=== PATIENT | female | born 1950 | race Caucasian/White ===

== ENCOUNTER 2020-04-23 07:30 | Outpatient (CLI) | payer MEDICARE, SELFPAY ==
--- NOTE | ~2020-04-23 | MM_ITS ---
EXAMINATION: MM screening [facility] BI w trista HISTORY: Screening mammogram TECHNIQUE: Craniocaudal and mediolateral oblique 3-D tomosynthesis images were obtained and synthetic 2-D images were generated. Right rotated lateral cc view. CAD analysis was submitted and interpreted . COMPARISON: 03/20/2019, 12/07/2016, 10/15/2015 bilateral digital screening mammogram examinations BREAST PARENCHYMAL COMPOSITION: There are scattered areas of fibroglandular density. FINDINGS: Stable mild fibroglandular asymmetry. There is no evidence of suspicious mass, calcificatio n, or architectural distortion to suggest malignancy in either breast. There has been no suspicious i nterval change. IMPRESSION: 1. No mammographic evidence of malignancy. 2. Recommend routine screening mammography in one year. BI-RADS Category 2: Benign finding(s). Reviewed, dictated and finalized at location B.
== END 2020-04-23 07:31 | disposition home or self-care (01) ==
LOC: ANHIMG 07:36
PROVIDERS: PCP Family Medicine; Visit Provider Family Medicine
DX: Z12.31 Encounter for screening mammogram for malignant neoplasm of breast (principal)
CPT/HCPCS: 77063; 77067

== ENCOUNTER 2021-06-09 16:36 | Outpatient (CLI) | payer MEDICARE, SELFPAY ==
--- NOTE | ~2021-06-09 | XR_ITS ---
EXAMINATION: XR knee RT min 4V DATE: 06/09/2021 17:07 INDICATION: Posterior right knee pain TECHNIQUE: Anteroposterior, oblique, sunrise and crosstable lateral views of the right knee were obta ined COMPARISON: None. FINDINGS: No fracture. Advanced patellofemoral osteoarthritis with remodeling of the trochlea and more prominen tly at the patella with prominent bone loss at the lateral facet. Lateral patellar tilt and subluxati on, unclear whether primary or secondary to the bone loss. Small marginal osteophytes along the later al tibial plateau and intercondylar eminence with relatively preserved joint space on nonweightbearin g imaging at the medial and lateral compartments. 4.5 x 2.5 x 3 cm osteochondral body and approximate ly 1 cm more caudal loose osteochondral body, both at the lateral gutter of the suprapatellar pouch. Suggestion of small right knee joint effusion. IMPRESSION: 1. Advanced patellofemoral osteoarthritis. Reviewed, dictated and finalized at location A. 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
== END 2021-06-09 16:37 | disposition home or self-care (01) ==
PROVIDERS: PCP Family Medicine; Visit Provider Physician Assistant
DX: M25.561 Pain in right knee (principal); M17.11 Unilateral primary osteoarthritis, right knee
CPT/HCPCS: 73564

== ENCOUNTER 2021-07-29 14:02 | Outpatient (CLI) | payer MEDICARE, SELFPAY ==
--- NOTE | ~2021-07-29 | DEXA_ITS ---
Bone Density Report Name: GRANT BALLARD Age: 70 Sex: Female Ethnicity: White Date of : 1950 Indication: osteopenia; height loss; prior fracture; postmenopausal Referring Provider: Kaye Rogers Study: Bone densitometry was performed. Exam Date: July 29, 2021 Accession number: [id number] Bone Density: Region BMD T-score Z-score Classification AP Spine (L1, L2, L3) 0.954 -0.6 1.6 Normal Femoral Neck (Left) 0.764 -0.8 1.2 Normal Total Hip (Left) 0.888 -0.4 1.2 Normal Total Hip Bilateral Avg 0.917 -0.2 1.5 Normal Femoral Neck (Right) 0.892 0.4 2.3 Normal Total Hip (Right) 0.946 0.0 1.7 Normal World Health Organization criteria for BMD impression classify patients as: Normal (T-score at or above -1.0), Osteopenia (T-score between -1.0 and -2.5), or Osteoporosis (T-score at or below -2.5). 10-year Fracture Risk: FRAX not reported because: All T-scores for Spine Total, Hip Total, Femoral Neck at or above -1.0 Previous Exams: Region Exam Age BMD T-score BMD Change BMD Change Date g/cm2 vs Baseline vs Previous AP Spine(L1, L2, L3) 07/29/2021 70 0.954 -0.6 -0.202(-17.5%) 0.053(5.9%)* 10/15/2015 65 0.901 -1.1 -0.255(-22.1%) -0.255(-22.1%) 12/18/2001 51 1.155 1.2 Total Hip(Left) 07/29/2021 70 0.888 -0.4 -0.157(-15.0%) -0.008(-0.9%) 10/15/2015 65 0.896 -0.4 -0.149(-14.3%) -0.149(-14.3%) 12/18/2001 51 1.045 0.8 Total Hip(Right) 07/29/2021 70 0.946 0.0 -0.158(-14.3%) -0.058(-5.8%)* 10/15/2015 65 1.004 0.5 -0.100(-9.1%)# -0.100(-9.1%)# 12/18/2001 51 1.105 1.3 *Denotes significance at 95% confidence level, LSC for AP Spine = 0.022 g/cm2, LSC for Total Hip = 0.027 g/cm2 Clinical Information Provided by Patient: Has had a low trauma fracture Has used the following medications: Vitamin D, Calcium Patient maximum height was 67 Menopause Age: 48 Drinks caffeinated beverages Onset of menses at age 15 Number of children 2 Impression: The patient has normal bone mass. The patient has risk factors, including: previous fracture. The BMD for the Total Hip(Right) decreased, changing by -5.8% since the last DXA exam. Discussion: BONE DENSITY IS ABOVE THE MINIMUM DESIRABLE LEVEL AT ALL SKELETAL SITES TESTED. This patient?s bone mineral density is above the minimum desirable level (T-score -1.0 or better) at all sites measured. The patient should follow a healthful lifestyle (good nutrition with adequat
--- NOTE | ~2021-07-29 | MM_ITS ---
EXAMINATION: MM screening [facility] BI w trista HISTORY: Screening mammogram TECHNIQUE: Craniocaudal and mediolateral oblique 3-D tomosynthesis images were obtained and synthetic 2-D images were generated. CAD analysis was submitted and interpreted. COMPARISON: 04/23/2020, 03/20/2019, 12/07/2016 BREAST PARENCHYMAL COMPOSITION: There are scattered areas of fibroglandular density. FINDINGS: There is no evidence of suspicious mass, calcification, or architectural distortion to sugg est malignancy in either breast. There has been no suspicious interval change. IMPRESSION: 1. No mammographic evidence of malignancy. 2. Recommend routine screening mammography in one year. BI-RADS Category 1: Negative Reviewed, dictated and finalized at location A. E EXTRA
== END 2021-07-29 14:03 | disposition home or self-care (01) ==
LOC: ANHIMG 14:04
PROVIDERS: PCP Family Medicine; Visit Provider Physician Assistant
DX: Z12.31 Encounter for screening mammogram for malignant neoplasm of breast (principal); Z78.0 Asymptomatic menopausal state
CPT/HCPCS: 77063; 77067; 77080

== ENCOUNTER 2021-09-06 08:05 | Outpatient (CLI) | payer MEDICARE, SELFPAY ==
--- NOTE | 2021-09-06 08:39 | ECG_ITS ---
Measurements Intervals [place] Rate: 65 P: 58 ME: 177 QRS: 23 QRSD: 87 T: 3 QT: 398 QTc: 415 Interpretive Statements SINUS RHYTHM INCOMPLETE RIGHT BUNDLE BRANCH BLOCK BORDERLINE ST-T WAVE ABNORMALITY- ANTEROLAT/INF LEADS BASELINE WANDER- V3 BORDERLINE ECG Electronically Signed On 09-06-2021 9:41:22 INDUSTRIAL CLEANER by Andrew Morocho D.O.
[2021-09-06 08:44] LABS: Hemoglobin 13.3 g/dL (12.0-15.0)
[2021-09-06 08:55] LABS: Albumin Level 4.4 g/dL (3.5-5.1); Estimated Glomerular Filt Rate > 60; Glucose 168 mg/dL (65-110)
[2021-09-06 09:10] LABS: Hemoglobin A1C 5.9 % (<5.7)
== END 2021-09-06 08:06 | disposition home or self-care (01) ==
PROVIDERS: PCP Family Medicine; Visit Provider Orthopaedic Surgery
DX: M17.11 Unilateral primary osteoarthritis, right knee (principal); Z01.818 Encounter for other preprocedural examination; E78.2 Mixed hyperlipidemia; R73.03 Prediabetes; I45.10 Unspecified right bundle-branch block; R94.31 Abnormal electrocardiogram [ECG] [EKG]
CPT/HCPCS: 36415; 82040; 82565; 82947; 83036; 85014; 85018; 93005

== ENCOUNTER 2021-10-17 09:57 | Outpatient (CLI) | payer MEDICARE, SELFPAY ==
[2021-10-17 11:09] LABS: Basophils Percent Auto 0.5 % (0.2-1.2); Eosinophils Absolute Auto 0.1 K/mm3 (0-0.3); Eosinophils Percent Auto 1.4 % (0-4.4); Hematocrit 42.1 % (37.0-47.0); Hemoglobin 13.6 g/dL (12.0-15.0); Immature Granulocyte Absolute 0.01 K/mm3 (0.00-0.031); Immature Granulocyte Percent A 0.2 % (0-0.5); Lymphocytes Percent Auto 28.5 % (18.3-44.2); Mean Corpuscular HGB Conc 32.3 g/dl (32-36); Mean Corpuscular Hemoglobin 31.1 pg (26-34); Mean Corpuscular Volume 96.3 fl (80-100); Mean Platelet Volume 9.5 fl (7.4-10.4); Monocytes Absolute Auto 0.4 K/mm3 (0.1-0.6); Neutrophils Absolute Auto 2.5 K/mm3 (1.3-6.7); Neutrophils Percent Auto 60.4 % (45.5-73.1); Platelet Count Result 235 k/mm3 (150-375); Red Blood Count 4.37 M/mm3 (4.2-5.4); Red Cell Distribution Width 13.2 % (11.5-14.5); White Blood Count 4.2 K/mm3 (4.5-10.0)
[2021-10-17 11:19] LABS: Urine Cotinine NEGATIVE
[2021-10-17 11:21] LABS: Albumin Level 4.5 g/dL (3.5-5.1); Estimated Glomerular Filt Rate > 60; Glucose 135 mg/dL (65-110)
== END 2021-10-17 09:58 | disposition home or self-care (01) ==
LOC: ANHSURGERY 10:01
PROVIDERS: PCP Family Medicine; Visit Provider Orthopaedic Surgery
DX: M17.11 Unilateral primary osteoarthritis, right knee (principal); Z01.818 Encounter for other preprocedural examination
CPT/HCPCS: 80307; 82040; 82565; 82947; 85025; 87081

== ENCOUNTER 2021-11-15 01:04 | Day surgery (SDC) | payer MEDICARE, SELFPAY ==
[2021-10-17 10:06] VITALS: BMI 27.3
--- NOTE | 2021-10-17 10:20 | PC.NURSE ---
Report to the Outpatient Waiting Room, entrance under the green pavilion located off [facility], at time ___30____ on date _11/15/21 . OR Time: ___1029____. - You and your visitor will be asked a series of questions to screen for COVID 19 for your protection. - A mask is required within the hospital. Preoperative COVID Testing Requirements: No COVID Test needed if: (proof is required; if not received patient will have Rapid Test prior to entry) - Patient has received COVID Vaccine at least 14 days prior to procedure date or - Patient has positive COVID test result within last 90 days of surgery date. COVID Test needed if above criteria is not met If not COVID vaccinated a COVID test must be conducted within 72 hours of surgery and patient is asked to isolate self from time of testing until procedure. You will go to the [facility] for your COVID testing. The [facility] is located at the corner of [address] from [facility]. You will only be called if COVID results are positive and your surgeon may reschedule your elective surgery date. Patients may have clear liquids (water, carbonated beverages, clear teas, apple juice) until 3 hours prior to surgery with a maximum of 20 ounces. - No food from midnight until time of surgery - Infants may have breast milk until 4 hours before surgery, infant formula 6 hours prior to surgery. - Children will be allowed to drink immediately following surgery. If applicable, please bring a bottle or sippy cup to assist with drinking. Juice, water, soda, and popsicles are readily available. For infants on formula, please bring formula the day of surgery. Pacifiers are allowed. Take the following medications with a SIP of water the morning of surgery: ___NONE Medications to discontinue per physician ALL VITAMINS AND SUPPLEMENTS 3 DAYS PRE OP Date to take last dose____11/11/21 Please no make-up, nail pakistani, hairspray, perfume, deodorant, or body powder the day of surgery. No jewelry (including any body piercings) or valuables the day of surgery, leave them at home. Please take a shower or bath the night before, or the morning of, surgery with an antibacterial soap. Wear comfortable, loose fitting clothing. Children are encouraged to wear pajamas. - Jewelry must be removed prior to entering the operating room. Rings and piercings that are not removed may be cut off. - The hospital will not accept responsibility for valuables. - Please leave all valuables, including medications, at home the day of surgery. If you are going home after surgery, a licensed fence post driver must drive you home. TOTAL JOINT CLASS 10/26/21 @ 10 AM - NO public transportation without another adult. - We recommend that an adult stay with you for 24 hours following discharge. - We also recommend that you do not drive, make important decision, drink alcoholic beverages, or take any drugs that were not prescribed by your health care provider for at least 24 hours after your discharge time. For Pediatric surgeries, we recommend two adults accompany the child home (only one inside the building at this time). One visitor will be allowed to accompany the patient into the hospital. Patients visitor will be instructed to remain with patient at all times or leave the building. We will allow the visitor to come back to the postoperative area when patient is ready. Follow any additional instructions given to you from your surgeon. VERBAL AND WRITTEN instructions given to _PATIENT and asked if any additional questions and then verbalized understanding. Patient advised to call surgeon office or pre surgery nurse liaison [phone] if any additional questions.
[2021-10-17 10:39] VITALS: BP 138/77; PULSE 80; RESP 18; TEMP 36.7; O2SAT 99
[2021-11-15] VITALS (15 sets, daily range): BP systolic 105–174; BP diastolic 53–107; PULSE 62–85; RESP 12–20; TEMP 35.9–36.6; O2SAT 96–100
--- NOTE | ~2021-11-15 | XR_ITS ---
EXAMINATION: XR knee RT 2V DATE: 11/15/2021 12:05 INDICATION: Total right knee arthroplasty. Postop. TECHNIQUE: 2 views of right knee were obtained. COMPARISON: Right knee radiographs 10/17/2021 FINDINGS: There is a total right knee arthroplasty without patellar resurfacing in near-anatomic alig nment. No fracture. There are osteophytes of the patella. No significant knee joint effusion. IMPRESSION: 1. Total right knee arthroplasty in near-anatomic alignment. Reviewed, dictated and finalized at location A.
--- NOTE | 2021-11-15 07:16 | WPDHPUPDATE1 ---
History and Physical Update Update Date/Time: 11/15/21 07:16 History and Physical has been reviewed, including an updated exam of the patient. There are NO changes in the patient's condition. Risks, benefits, and alternatives have been discussed and questions answered. Patient agrees to proceed with procedure.
--- NOTE | 2021-11-15 07:59 | WPDANESEPPF ---
Anes - Initial Pre Proc Eval Procedure: Operation Date: 11/15/21 10:30 Proposed Procedures p Right Total Knee Arthroplasty - Jose Amos MD Date/Time: 11/15/21 07:59 Surgeon: Jose Amos MD Pre Op Diagnosis: primary oa right knee Patient Data Age: 71 Gender: F Height: 1.7 m Weight: 79.3 kg Last Vital Signs Temp 36.7 C 10/17/21 10:39 Pulse 80 10/17/21 10:39 Resp 18 10/17/21 10:39 BP 138/77 10/17/21 10:39 Pulse Ox 99 10/17/21 10:39 Allergies Allergy/AdvReac Type Severity Reaction Status Date / Time No Known Allergies Allergy Verified 11/15/21 08:37 Home Medications Medication Instructions Recorded Confirmed Type calcium carbonate 600 mg-vitamin 1 tablet PO DAILY 03/24/20 11/15/21 History D3 20 mcg (800 unit) chewable tablet cetirizine 10 mg tablet 10 mg PO DAILY PRN tablet 03/24/20 11/15/21 History nwuiyesb-ryj-zsxij acid 0.4 1 tablet PO DAILY 03/24/20 11/15/21 History mg-lycopene 300 mcg-lutein 250 mcg tablet glucosamine sulfate 1,000 mg 1,000 mg PO DAILY 06/28/21 11/15/21 History capsule acetaminophen [Tylenol Arthritis] 650 mg PO Q8H PRN 10/17/21 11/15/21 History rosuvastatin 10 mg PO HS 10/17/21 11/15/21 History ECG: Date of Service: 09/06/21 Procedure(s): CA 12 lead EKG Accession Number(s): [id number] cc: ~ Measurements Intervals [place] Rate: 65 P: 58 GA: 177 QRS: 23 QRSD: 87 T: 3 QT: 398 QTc: 415 Interpretive Statements SINUS RHYTHM INCOMPLETE RIGHT BUNDLE BRANCH BLOCK BORDERLINE ST-T WAVE ABNORMALITY- ANTEROLAT/INF LEADS BASELINE WANDER- V3 BORDERLINE ECG Electronically Signed On 09-06-2021 9:41:22 BURNER MACHINE OPERATOR by Andrew Morocho D.O. Patient hx anesthesia problems: none Family hx anesthesia problems: none Results Review: All pre-operative results and documents have been reviewed as part of the pre-operative evaluation. [facility] Past Medical History Medical History (Updated 11/16/21 @ 08:25 by VIC Capps) History of broken collarbone (~1974) History of measles History of mumps Mixed hyperlipidemia Osteoarthritis Overweight (BMI 25.0-29.9) Surgical History Surgical History (Updated 11/16/21 @ 08:25 by VIC Capps) History of hysterectomy History of tubal ligation Family History Family History Father Alzheimer disease Coronary artery disease Other Carcinoma of colon Diabetes mellitus Social History Social History Smoking status: Never smoker Additional smoking assessment comments: DENIES ANY FORM OF TOBACCO USE Alcohol intake: never Substance use: never Living arrangements: with family Spiritual care concerns: No Anes - Eval Final PreProcedure Day of Procedure 11/15/21 07:59 Patient weight: obese Heart: regular rate and rhythm Lungs: clear to auscultation and normal air movement Airway: Mallampati scale class II Neurological: alert and oriented Last oral intake: >/= 8 hours ASA classification: II Emergent: no Anesthetic plan: proceed Anesthesia type and monitoring: general LMA Results Review: All pre-operative results and documents have been reviewed as part of the pre-operative evaluation. Informed Consent: The patient's anesthetic plan and its attendant risks and benefits were discussed with the patient/family/POA. Questions were solicited and answers provided to the satisfaction of the patient/family/POA.
--- NOTE | 2021-11-15 08:03 | WPDANESPNB ---
Anes - Peripheral Nerve Block Date/Time: 11/15/21 08:03 I have discussed with the patient/family/POA the placement of a peripheral nerve block for post-operative pain management, including associated risks, benefits, complications, and side effects. Alternative methods of post-operative analgesia were detailed. Questions were solicited and answers provided to the satisfaction of the patient/family/POA. Time-Out: A pre-procedural Time-Out was completed immediately before starting the procedure and confirmed: Patient Identification, Site, Procedure, Patient Position and the Availability of Requisite Equipment. Clinical Indications: Acute post-operative pain management requested by the operative surgeon. Nerve Block Insertion Note Anes-nerve block: adductor canal right Patient position: supine Skin prep: chlorhexidine Needle: 22 gauge, stimulating, insulated echogenic needle. Needle length: 80 mm Technique: ultrasound Technique comment: in plane Injectate: bupivacaine 0.5% with epi 5 mcg/ml (30cc) Observations: tolerated well Complications: none Procedure start time:: 955 Procedure end time:: 1000
[2021-11-15] MEDS: LACTATED RINGERS 1,000 ML 30 ML IV CONT ×2 (08:45→11:49)
[2021-11-15] MEDS: ACETAMINOPHEN 500 MG TABLET 1000 MG PO (08:45)
[2021-11-15] MEDS: TRANEXAMIC ACID 1,000MG/ISO100 1,000 MG/100 ML BAG 200 MG IVPB (09:33)
[2021-11-15] MEDS: ceFAZolin 2 GM/D5W 50 ML 2 GM/50 ML BAG IVPB ×2 (09:58→17:10)
[2021-11-15] MEDS: fentaNYL CITRATE INJ (*CRX) 100 MCG/2 ML VIAL 25 MCG IV PUSH ×4 (12:52→13:32)
--- NOTE | 2021-11-15 14:09 | PC.NURSE ---
This patient, Mildred Almaraz, was admitted to 2 Medical Room 241-01. Patient/family oriented to hospital policies and general routines including ID bracelet, bed and alarms, visiting hours, pain management, procedures, bathroom and other care routines, personal items, smoking policy, room service/diet, and visiting hours. Information on how to activate the Rapid Response Team has been discussed. Patient/Family are encouraged to report perceived risks to care and to ask questions if they do not understand what they are told or what they should do.
[2021-11-15] MEDS: SODIUM CHLORIDE 0.9% IV 1,000 ML 125 ML IV CONT (14:45)
--- NOTE | 2021-11-15 15:09 | W.PM.PROC2 ---
Procedure Note - Detailed Date of Procedure 11/15/21 Pre-op Diagnosis Primary patellofemoral osteoarthritis right knee Post-op Diagnosis Same Procedure Performed Total knee arthroplasty, right knee. Surgeon Jose Amos MD Consumer Education Specialist Audrey Lozada PA-C Anesthesia General and Regional (Subsartorial block.) Indications End-stage primary patellofemoral arthritis with extensive erosion and subluxation of the patella. Due to the extreme thinness of the patella, patellar resurfacing was not possible. Findings The lateral aspect of the patella and osteophytes were removed and shaped to improve tracking. It tracked with the medial portion of the patella in the trochlea. This was quite stable. Bone quality was reasonable. No significant releases were required. Standard bony resections. Description of Procedure The patient was brought to the operating room. A general anesthetic was administered. The leg was prepped and draped in the usual sterile fashion. The limb was elevated and the tourniquet inflated to 300 mmHg during initial exposure. A longitudinal incision was created along the medial border of the patella and patellar tendon, and a trivector approach to the knee was performed. A minimal medial release was taken. The knee was then flexed. The osteophytes were carefully removed. The intramedullary guide was placed in the femoral canal. The distal femoral resection was then taken with the oscillating saw. The collateral ligaments were carefully protected. The tibia was carefully exposed. The jig was applied, and the proximal tibia was resected according to preoperative plan. The knee was balanced in extension. Appropriate releases were taken where needed. The anterior cruciate ligament and meniscal remnants were removed. The posterior cruciate ligament was preserved sacrificed. The femur was sized and rotation assessed using a combination of gap balancing, posterior referencing, and the AP axis. The 4 in 1 cutting block and the box cut guide were used to finish the femoral cuts after equal gaps were assured. The osteophytes were carefully removed from the back of the knee. The knee was copiously irrigated with antibiotic solution periodically throughout the procedure. The meniscal remnants were removed. The spacer block was used to confirm equal flexion and extension gaps. Further releases were performed as needed. The tibia was sized and broached. The bony surfaces were prepared for cementing with pulsatile lavage. The real tibial and femoral components were cemented into position. Excess cement was carefully removed. Patellar tracking was carefully assessed. The lateral aspect of the patella and osteophytes were removed and shaped to improve tracking. No additional releases were required. Dilute sterile Betadine soak performed for three minutes. Copious irrigation then performed. The wound was closed with #1 Vycril suture, #2 Quill suture, 0-Quill suture, and 2-0 Quill suture followed by Steri-Strips. A sterile bulky dressing was applied. Meticulous hemostasis was maintained throughout the procedure. The pain relieving mixture was injected into the periarticular tissues during the procedure. There were no complications. The patient was extubated and brought to the recovery room in stable condition after the application of sterile dressing with Collin bandage. Physician laboratory chemical assistant, Audrey Lozada PA-C, required for surgery; including patient positioning, draping, tissue retraction, maintaining instrument position, cement removal, wound closure, and dressing placement. Implants Central Test Triathlon knee system, low profile cemented tibia size 5, cemented posterior stabilized femoral component size 4 ,and a 9 mm posterior stabilized polyethylene insert. Estimated Blood Loss -100.0 Drains No Complications No immediate complications Condition Stable Disposition PACU
[2021-11-15] MEDS: ONDANSETRON INJ 4 MG/2 ML VIAL IV PUSH (15:40)
--- NOTE | 2021-11-15 15:58 | PCPTNOTE ---
Attempted physical therapy evaluation, Patient very nauseous/feeling unwell. RN aware. Will follow.
[2021-11-15] MEDS: SENNA/DOCUSATE SODIUM TABLET 2 TAB PO (16:32)
[2021-11-15] MEDS: ASPIRIN 81 MG ENTERIC TABLET PO (16:33)
[2021-11-15] MEDS: MELOXICAM 7.5 MG TABLET PO (16:33)
[2021-11-15] MEDS: FAMOTIDINE 20 MG TABLET PO (19:54)
[2021-11-15] MEDS: ROSUVASTATIN 10 MG TABLET PO (19:54)
[2021-11-16] MEDS: ceFAZolin 2 GM/D5W 50 ML 2 GM/50 ML BAG IVPB ×2 (01:48→09:43)
[2021-11-16 03:31] VITALS: BP 137/61; PULSE 70; RESP 20; TEMP 36; O2SAT 97
[2021-11-16] MEDS: ONDANSETRON INJ 4 MG/2 ML VIAL IV PUSH (05:27)
[2021-11-16] MEDS: oxyCODONE HCL (*CRX) 5 MG TAB IR PO (08:07)
[2021-11-16] MEDS: MELOXICAM 7.5 MG TABLET PO (08:08)
[2021-11-16] MEDS: ASPIRIN 81 MG ENTERIC TABLET PO (08:08)
[2021-11-16] MEDS: FAMOTIDINE 20 MG TABLET PO (08:08)
[2021-11-16] MEDS: polyethylene glycoL 3350 17 GM POWD.PACK PO (08:08)
[2021-11-16] MEDS: SENNA/DOCUSATE SODIUM TABLET 2 TAB PO (08:08)
--- NOTE | 2021-11-16 08:27 | PM.DS ---
DS: Admitting Diagnosis Discharge Date 11/16/21 Admitting Diagnosis OA knee Right DS: Discharge Diagnosis Discharge Diagnosis (1) Status post total right knee replacement: Code(s): Z96.651 - Presence of right artificial knee joint Status: Acute Assessment and Plan: Postop day 1: Right total knee arthroplasty. Patient tolerated procedure well. No complications. Pain manageable with pain medication. No numbness or tingling. We had a lengthy discussion regarding postoperative wound care, limitations, expectations, and exercises. Patient shows good understanding. She has had initial physical therapy and is tolerating it well. DVT prophylaxis: 81 mg baby aspirin b.i.d. for 14 days. Short frequent walks. Pain medication: Percocet. Prednisone. Meloxicam. Patient has followup appointment with Dr. Amos in 3 weeks. DS: Summary Hospital Course Reason for hospitalization: Total knee arthroplasty Hospital Course: Patient tolerated procedure well. Has had initial PT/OT. Status at Discharge Functional status at discharge: uses cane/walker Overall status at discharge: patient is progressing back to baseline Time Spent with Patient Time attestation: Total time spent providing and/or coordinating discharge services: Exam Narrative: Overweight 71 y/o female. Resting comfortably in bed. Wearing compression socks bilaterally. Dressing intact with no drainage. Moderate swelling. Small area of ecchymosis. No erythema. No hematoma. Range of motion limited due to pain. Calf nontender. Neurologic status intact. No varicosities. Distal pulses palpable. DS: Data Data Completed and Pending Labs on day of discharge: Labs from last 24 hours 11/15/21 08:55 Blood Type O Positive Antibody Screen Negative Discharge Plan Discharge Patient Disposition: Home, Self-Care Discharge Instructions: See green instruction sheets Stand Alone Forms: General Discharge Instructions Follow-up/Referrals: Audrey Lozada PA [Physician Rail Setter] - Discharge Medications: New meloxicam 15 mg tablet 15 mg PO DAILY Qty: 30 RF: 0 aspirin 81 mg tablet,delayed release (DR/EC) 81 mg PO BID 14 Days Qty: 28 RF: 0 oxycodone-acetaminophen 5-325 mg tablet 1 - 2 tablet PO Q4-6H MDD 6 PRN (Reason: pain) Qty: 30 RF: 0 prednisone 5 mg tablet 5 mg PO DAILY 21 Days Qty: 21 RF: 0 Continued cetirizine [Zyrtec] 10 mg tablet 10 mg PO DAILY PRN (Reason: Allergy Symptoms) RF: 0 Caltrate 600 plus D 600 mg (1,500 mg)-800 unit tablet,chewable 1 tablet PO DAILY RF: 0 Centrum Silver 0.4-300-250 mg-mcg-mcg tablet 1 tablet PO DAILY RF: 0 glucosamine sulfate 1,000 mg capsule 1,000 mg PO DAILY RF: 0 acetaminophen 650 mg Tablet Extended Release 650 mg PO Q8H PRN (Reason: Pain) RF: 0 rosuvastatin 10 mg tablet 10 mg PO HS RF: 0
--- NOTE | 2021-11-16 10:33 | WPDANESPN ---
Anes - Prog Note Post-Op Date/Time: 11/16/21 10:33 Cardiovascular status: normal Respiratory status: normal Airway patency: baseline Mental status: baseline Post-Op hydration status: normal Vital Signs: Last Vital Signs Temp 96.8 F L 11/16/21 03:31 Pulse 70 11/16/21 03:31 Resp 20 11/16/21 03:31 BP 137/61 11/16/21 03:31 Pulse Ox 97 11/16/21 03:31 Pain Score (VAS): 08/01 I/O: Intake & Output 11/15/21 11/16/21 11/16/21 23:59 07:59 15:59 Intake Total 1390 150 240 Output Total 800 Balance 1390 -650 240 Post-procedural complaints: none Patient Feedback: Patient satisfied with anesthetic care.
[2021-11-16 11:55] VITALS: BP 142/55; PULSE 80; RESP 16; TEMP 36.5; O2SAT 98
== END 2021-11-16 13:20 | disposition home or self-care (01) ==
LOC: ANHSURGERY 08:13 → ANH2MED 14:06
PROVIDERS: PCP Family Medicine; Visit Provider Orthopaedic Surgery
PROC: (CPT 27447; principal; 2021-11-15 10:30)
DX: M17.11 Unilateral primary osteoarthritis, right knee (principal); G89.18 Other acute postprocedural pain; E78.2 Mixed hyperlipidemia; E66.9 Obesity, unspecified; Z68.27 Body mass index [BMI] 27.0-27.9, adult
CPT/HCPCS: 27447; 64447; 36415; 73560; 86850; 86900; 86901; 97110; 97116; 97161; 97165; 97535; A9270; C1713; C1776; J0131; J0171; J0690; J1100; J1170; J1885; J2250; J2270; J2405; J2704; J2795; J3010; J7030; J7120

== ENCOUNTER 2023-06-08 08:41 | Outpatient (CLI) | payer MEDICARE, SELFPAY ==
[2023-06-08 18:48] LABS: Alanine Aminotransferase 28 U/L (6-35); Albumin Level 4.2 g/dL (3.5-5.1); Alkaline Phosphatase 79 U/L (38-126); Anion Gap 7 mmol/L (8-16); Aspartate Amino Transferase 33 U/L (14-36); Bilirubin,Total 0.7 mg/dL (0.2-1.3); Blood Urea Nitrogen 23 mg/dL (7-17); Calcium 9.8 mg/dL (8.4-10.2); Carbon Dioxide 29 mmol/L (22-30); Chloride 104 mmol/L (98-107); Cholesterol 201 mg/dL (0-200); Estimated Glomerular Filt Rate > 60; Glucose 104 mg/dL (65-110); HDL Direct 53 mg/dL; Potassium 4.2 mmol/L (3.4-5.0); Sodium 140 mmol/L (137-145); Triglycerides 91 mg/dL (<150)
[2023-06-08 19:00] LABS: LDL Cholesterol Direct 113 mg/dL
[2023-06-08 19:17] LABS: Hemoglobin A1C 5.8 % (<5.7)
[2023-06-08 19:33] LABS: Hepatitis C Virus Antibody Negative (Negative)
== END 2023-06-08 08:42 | disposition home or self-care (01) ==
PROVIDERS: PCP Family Medicine; Visit Provider Nurse Practitioner Family
DX: Z11.59 Encounter for screening for other viral diseases (principal); E78.2 Mixed hyperlipidemia; R73.03 Prediabetes
CPT/HCPCS: 36415; 80053; 80061; 83036; 86803

== ENCOUNTER 2024-05-14 09:39 | Outpatient (CLI) | payer MEDICARE, SELFPAY ==
[2024-05-14 13:25] LABS: Alanine Aminotransferase 38 U/L (6-35); Albumin Level 4.8 g/dL (3.5-5.1); Alkaline Phosphatase 76 U/L (38-126); Anion Gap 10 mmol/L (4-12); Aspartate Amino Transferase 45 U/L (14-36); Bilirubin,Total 0.8 mg/dL (0.2-1.3); Blood Urea Nitrogen 23 mg/dL (7-17); Carbon Dioxide 28 mmol/L (22-30); Chloride 101 mmol/L (98-107); Estimated Glomerular Filt Rate > 60; Glucose 114 mg/dL (65-110); Potassium 4.4 mmol/L (3.4-5.0); Sodium 139 mmol/L (137-145)
[2024-05-14 13:45] LABS: Basophils Percent Auto 1.1 % (0.2-1.2); Eosinophils Absolute Auto 0.1 K/mm3 (0-0.3); Hematocrit 45.5 % (37.0-47.0); Hemoglobin 14.3 g/dL (12.0-15.0); Immature Granulocyte Absolute 0.02 K/mm3 (0.00-0.031); Immature Granulocyte Percent A 0.6 % (0-0.5); Lymphocytes Absolute Auto 1.06 K/mm3 (0.9-3.2); Mean Corpuscular HGB Conc 31.4 g/dl (32-36); Mean Corpuscular Hemoglobin 30.1 pg (26-34); Mean Corpuscular Volume 95.8 fl (80-100); Mean Platelet Volume 11.2 fl (7.4-10.4); Monocytes Absolute Auto 0.4 K/mm3 (0.1-0.6); Monocytes Percent Auto 10.5 % (2.6-8.5); Neutrophils Percent Auto 55.8 % (45.5-73.1); Platelet Count Result 259 k/mm3 (150-375); Red Blood Count 4.75 M/mm3 (4.2-5.4); Red Cell Distribution Width 13.3 % (11.5-14.5); White Blood Count 3.5 K/mm3 (4.5-10.0)
[2024-05-14 14:11] LABS: Hemoglobin A1C 6.2 % (<5.7)
== END 2024-05-14 09:40 | disposition home or self-care (01) ==
LOC: ANHGOSHLAB 09:41
PROVIDERS: PCP Family Medicine; Visit Provider Nurse Practitioner Family
DX: E66.3 Overweight (principal); E78.2 Mixed hyperlipidemia; R73.03 Prediabetes; R73.01 Impaired fasting glucose
CPT/HCPCS: 36415; 80053; 83036; 85025

== ENCOUNTER 2024-08-11 09:50 | Outpatient (CLI) | payer MEDICARE, SELFPAY ==
--- NOTE | ~2024-08-11 | MM_ITS ---
EXAMINATION: MM diagnostic [facility]iko BI w trista HISTORY: Right breast pain TECHNIQUE: Additional 3-D tomosynthesis images of the breasts were performed and synthetic 2-D images were generated. CAD analysis was submitted and interpreted. COMPARISON: Comparison to multiple prior studies sequentially, with oldest reviewed study dated 10/14. BREAST PARENCHYMAL COMPOSITION: Not dense: There are scattered areas of fibroglandular density. FINDINGS: There are no suspicious masses, calcifications or architectural distortion in either breast to suggest malignancy. IMPRESSION: 1. No mammographic evidence for malignancy in either breast. 2. Routine yearly screening mammogram and regular clinical breast examination are recommended. BI-RADS Category 1: Negative Reviewed, dictated and finalized at location A. SCHOOL COORDINATOR IMPRESSION: 1. No mammographic evidence for malignancy in either breast. 2. Routine yearly screening mammogram and regular clinical breast examination a re recommended. BI-RADS Category 1: Negative
== END 2024-08-11 09:51 | disposition home or self-care (01) ==
LOC: ANHIMG 09:51
PROVIDERS: PCP Family Medicine; Visit Provider Family Medicine
DX: Z12.31 Encounter for screening mammogram for malignant neoplasm of breast (principal); R92.8 Other abnormal and inconclusive findings on diagnostic imaging of breast
CPT/HCPCS: 77062; 77066; G0279

== ENCOUNTER 2025-05-26 13:53 | Outpatient (CLI) | payer MEDICARE, SELFPAY ==
--- NOTE | 2025-05-26 14:37 | ECG_ITS ---
Test Date: 2025-05-26 15:00:09 Measurements Intervals [place] Rate: 68 P: 0 CA: 0 QRS: 8 QRSD: 86 T: 2 QT: 419 QTc: 447 Interpretive Statements SINUS WITH PACs LOW QRS VOLTAGE IN PRECORDIAL LEADS [QRS DEFLECTION < 1.0 mV IN CHEST LEADS] ABNORMAL RHYTHM ECG WARNING: DATA QUALITY MAY AFFECT INTERPRETATION No previous ECG available for comparison Electronically Signed On 05-26-2025 21:24:40 PARTNER MARKETING INTERN by Evelio Montesinos M.D.
[2025-05-26 15:10] LABS: Hematocrit 42.2 % (37.0-47.0); Hemoglobin 13.7 g/dL (12.0-15.0); Immature Granulocyte Percent A 0.2 % (0-0.5); Lymphocytes Absolute Auto 1.20 K/mm3 (0.9-3.2); Mean Corpuscular HGB Conc 32.5 g/dl (32-36); Mean Corpuscular Hemoglobin 30.3 pg (26-34); Mean Corpuscular Volume 93.4 fl (80-100); Nucleated Red Blood Cells Absolute Auto 0.000 K/mm3 (0.0-0.012); Nucleated Red Blood Cells Perc 0.0 % (0.0-0.2); Platelet Count Result 232 k/mm3 (150-375); Red Blood Count 4.52 M/mm3 (4.2-5.4); White Blood Count 4.7 K/mm3 (4.5-10.0)
[2025-05-26 15:21] LABS: INR 0.9; Partial Thromboplastin Time 32.9 Seconds (22.3-36.8); Prothrombin Time 12.6 Seconds (11.1-14.7)
[2025-05-26 15:23] LABS: Alanine Aminotransferase 35 U/L (6-35); Albumin Level 4.5 g/dL (3.5-5.1); Alkaline Phosphatase 72 U/L (38-126); Anion Gap 5 mmol/L (4-12); Aspartate Amino Transferase 36 U/L (14-36); Bilirubin,Total 0.4 mg/dL (0.2-1.3); Blood Urea Nitrogen 21 mg/dL (7-17); Calcium 9.6 mg/dL (8.4-10.2); Carbon Dioxide 28 mmol/L (22-30); Chloride 104 mmol/L (98-107); Estimated Glomerular Filt Rate 49; Glucose 102 mg/dL (65-110); Potassium 4.2 mmol/L (3.4-5.0); Sodium 137 mmol/L (137-145); Total Protein 7.3 g/dL (6.3-8.2)
--- OUTSIDE RECORDS SUMMARY | 2025-05-26 15:36 | XMS_ITS | Clinical Summary ---
Author Organization [facility] Address [facility] [place] [address] Care Team Providers Care Assistant Maintenance Manager Name Role Phone Audrey Lozada Primary Care Provider Medications No known medications Active Problems Problem Noted Date Diagnosed Date S/P TKR (total knee replacement), right 11/16/19 Osteoarthritis of right knee 08/05/2021 Social History Tobacco Use Types Packs/Day Years Used Date Smoking Tobacco: Never Assessed Comments Unknown Sex and Gender Information Value Date Recorded Sex Assigned at Not on file Legal Sex Female 7:29 PM CDT Gender Identity Not on file Sexual Orientation Not on file Plan of Treatment Health Maintenance Due Date Last Done Comments Hepatitis C 1966 DTaP, Tdap and Td Vaccines ( 1 - Tdap) 1967 Pneumococcal Vaccine: 50+ Years (1 of 1 - PCV) 1998 Zoster Vaccines (1 of 2) 1998 Annual Medicare Wellness Visit 2013 Dexa Scan (General) 2013 RSV Immunization or 60+ Years (1 - 1-dose 75+ series) 2023 COVID-19 Vaccine (2024-2 6 season) 2025 04/21/2021, 09/20/2020, 08/30/2020 Influenza Adult (#1) 2025 Hepatitis A Vaccines Aged Out No long er eligible based on patient's age to complete this topic Meningococcal B Vaccine Aged Out No l onger eligible based on patient's age to complete this topic Meningococcal Vaccine Aged Out No everette mary lou eligible based on patient's age to complete this topic RSV Immunizations Under 20 Months Aged Out No longer eligible b ased on patient's age to complete this topic Insurance MEDICARE [facility] Care Teams Assistant Maintenance Manager Relationship Specialty Start Date End Date Audrey Lozada PA [address] [address] PCP - General 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
== END 2025-05-26 13:54 | disposition home or self-care (01) ==
LOC: ANHSURGERY 13:56
PROVIDERS: PCP Family Medicine; Visit Provider Urology
DX: Z01.818 Encounter for other preprocedural examination (principal); N81.4 Uterovaginal prolapse, unspecified; R74.8 Abnormal levels of other serum enzymes; E78.2 Mixed hyperlipidemia
CPT/HCPCS: 36415; 80053; 85025; 85610; 85730; 86850; 86900; 86901; 93005

== ENCOUNTER 2025-06-08 01:45 | Day surgery (SDC) | payer MEDICARE, SELFPAY ==
[2025-05-26 14:07] VITALS: BP 133/71; PULSE 68; RESP 16; TEMP 36.7; O2SAT 98; BMI 26.2
--- NOTE | 2025-05-26 14:20 | PC.NURSE ---
[facility] has started construction of its new state of the art ER which will open Spring 2026. With this, we anticipate parking may be a challenge for some our surgical patients and families. Parking spaces are limited but are available for all Surgical, obstetrics, and ER patients sharing this lot. If you arrive and find you are having a hard time finding a parking space, please note that we understand the challenges, please drive around the hospital and park near Hospital Entrance 1. When you enter this entrance, you can ask a volunteer to direct or take you back to the surgical waiting area to check in. We appreciate everyone?s understanding of these expected challenges while we build for your future. Report to the Outpatient Waiting Room, entrance under the green pavilion located off [address], at time ___06:00am____ on date _ 06/08/25 . Planned Procedure Time: ___07:30am .? Time changes happen often and if your time is changed the preop area will call you the afternoon before. - You and your visitor will be asked to self-screen and do not enter if you have any COVID symptoms. Please call surgeon if you need to reschedule. - A mask is optional within the hospital at this time. Patients may have clear liquids (water, carbonated beverages, clear teas, apple juice) until 3 hours prior to surgery with a maximum of 20 ounces. - No food from midnight until time of surgery and no smoking, or chewing tobacco (or any form of nicotine). No chewing gum, candy or mints. (0430am) Take only the following medications with a SIP of water on the morning of surgery: __NONE DO NOT STOP ANY OF YOUR OTHER PRESCRIPTION MEDICATIONS PRIOR TO SURGERY EXCEPT THE FOLLOWING Hold all vitamins and supplements for 3 days per anesthesiologist. date of last dose is 06/04/25 Medications to discontinue per physician No aspirin or NSAIDS for [address] Becker Date to take last dose____05/31/25 Please no make-up, nail telugu, hairspray, perfume, deodorant, or body powder the day of surgery.? No jewelry (including any body piercings) or valuables the day of surgery, leave them at home.? Please take a shower or bath the night before, or the morning of, surgery with an antibacterial soap.? GOLD DIAL Wear comfortable, loose fitting clothing.? Bring overnight bag - Jewelry must be removed prior to entering the operating room.? Rings and piercings that are not removed may be cut off. - The hospital will not accept responsibility for valuables.? - Please leave all valuables, including medications, at home the day of surgery. If you are going home after surgery, a licensed driver recruiter must drive you home.? - NO public transportation without another adult if you receive anesthesia. - We recommend that an adult stay with you for 24 hours following discharge. - We also recommend that you do not drive, make important decision, drink alcoholic beverages, or take any drugs that were not prescribed by your health care provider for at least 24 hours after your discharge time. Follow any additional instructions given to you from your surgeon. Telephone instructions given to __Patient and asked if any additional questions and then verbalized understanding. Patient advised to call surgeon office or pre surgery nurse liaison [phone] if any additional questions.
--- NOTE | 2025-06-02 07:18 | PM.IMHP ---
H&P: HPI History of Present Illness Date/Time: 06/02/25 07:18 Chief Complaint: Uterine prolapse Narrative: Is a 74-year-old female admitted for robotic supracervical hysterectomy and bilateral salpingo-oophorectomy. She had seen Dr. Becker his 3rd degree prolapse. She had a normal Pap smear and is fairly healthy. She finds cyst and knowing and would like to have this repaired. Risks and benefits reviewed in great detail. She received the [employer] handout entitled hysterectomy as well as de Adal handout. She had all questions answered. She asked to proceed Review of Systems Review of Systems: All systems reviewed & are unremarkable except as noted in HPI and below PMFSH Past Medical History Medical History Osteoarthritis Overweight (BMI 25.0-29.9) History of mumps History of measles History of broken collarbone (~1973) Mixed hyperlipidemia Surgical History Surgical History History of total right knee replacement (~11/15/21) History of tubal ligation Family History Family History Father Alzheimer disease Coronary artery disease Other Carcinoma of colon Diabetes mellitus Social History Social History Smoking status: Never smoker Second hand tobacco smoke exposure: Yes Additional smoking assessment comments: DENIES ANY FORM OF TOBACCO USE Alcohol intake: current Alcohol use details: 1 per month Substance use: never Lack of Transportation: No Lack of Food: Never True Current Housing: I Do Not Have Housing Concerned About Future Housing: No Difficulty Paying Gas/Electric Bills: No Difficulty Paying for Meds: No Currently Unemployed: No Education: High School Diploma/GED Difficulty w/ Childcare or Family Care: No Living arrangements: with family Additional living arrangements comments: Spiritual care concerns: No Meds Home Medications and Allergies Home Medications ?Medication ?Instructions ?Recorded ?Confirmed ?Type calcium 600 mg (as carbonate)-vit 1 tablet PO DAILY 03/24/20 05/26/25 History D3 20 mcg (800 unit) chewable tablet (Caltrate plus D) ypxykecf-yxv-xapyw acid 0.4 1 tablet PO DAILY 03/24/20 05/26/25 History mg-lycopene 300 mcg-lutein 250 mcg tablet (Centrum Silver) glucosamine sulfate 1,000 mg 1,000 mg PO DAILY 06/28/21 05/26/25 History capsule ascorbate calcium (vitamin C) 500 500 mg PO DAILY 03/16/25 05/26/25 History mg tablet rosuvastatin 10 mg tablet See Rx Instructions .Route 05/18/25 05/26/25 Rx .COMPLEX #90 tabs Allergies Allergy/AdvReac Type Severity Reaction Status Date / Time No Known Allergies Allergy Verified 05/26/25 14:05 Exam Const: General: cooperative, healthy appearing and comfortable Nutritional Appearance: average body habitus Orientation/consciousness: oriented to person, oriented to place and oriented to time HENMT: Head: normal to inspection Resp: Effort & Inspection: normal respiratory effort Cardio: Rate: regular rate Rhythm: regular rhythm Heart sounds: S1 normal heart sound present and S2 normal heart sound present GI: Inspection: normal to inspection : External Female Exam: normal external appearance Speculum Exam - Vagina: normal appearance of the vagina Speculum Exam - Cervix: normal appearance of the cervix (3rd degree prolapse) Bimanual exam- vagina & uterus: soft Assessment and Plan Assessment and plan (1) Uterine prolapse: Code(s): N81.4 - Uterovaginal prolapse, unspecified Status: Acute Plan Proceed with robotic supracervical hysterectomy and bilateral salpingo-oophorectomy. Dr. Becker will undertake sacral colpopexy and proceed as needed
--- NOTE | 2025-06-07 19:22 | PM.IMHP ---
H&P: HPI History of Present Illness Date/Time: 06/07/25 19:22 Chief Complaint: POP Narrative: uterine prolapse. No jimmy Review of Systems Review of Systems: All systems reviewed & are unremarkable except as noted in HPI and below PMFSH Past Medical History Medical History Osteoarthritis Overweight (BMI 25.0-29.9) History of mumps History of measles History of broken collarbone (~1973) Mixed hyperlipidemia Surgical History Surgical History History of total right knee replacement (~11/15/21) History of tubal ligation Family History Family History Father Alzheimer disease Coronary artery disease Other Carcinoma of colon Diabetes mellitus Social History Social History Smoking status: Never smoker Second hand tobacco smoke exposure: Yes Additional smoking assessment comments: DENIES ANY FORM OF TOBACCO USE Alcohol intake: current Alcohol use details: 1 per month Substance use: never Lack of Transportation: No Lack of Food: Never True Current Housing: I Do Not Have Housing Concerned About Future Housing: No Difficulty Paying Gas/Electric Bills: No Difficulty Paying for Meds: No Currently Unemployed: No Education: High School Diploma/GED Difficulty w/ Childcare or Family Care: No Living arrangements: with family Additional living arrangements comments: Spiritual care concerns: No Meds Home Medications and Allergies Home Medications ?Medication ?Instructions ?Recorded ?Confirmed ?Type calcium 600 mg (as carbonate)-vit 1 tablet PO DAILY 03/24/20 05/26/25 History D3 20 mcg (800 unit) chewable tablet (Caltrate plus D) pjpruewl-hbr-hefyg acid 0.4 1 tablet PO DAILY 03/24/20 05/26/25 History mg-lycopene 300 mcg-lutein 250 mcg tablet (Centrum Silver) glucosamine sulfate 1,000 mg 1,000 mg PO DAILY 06/28/21 05/26/25 History capsule ascorbate calcium (vitamin C) 500 500 mg PO DAILY 03/16/25 05/26/25 History mg tablet rosuvastatin 10 mg tablet See Rx Instructions .Route 05/18/25 05/26/25 Rx .COMPLEX #90 tabs Allergies Allergy/AdvReac Type Severity Reaction Status Date / Time No Known Allergies Allergy Verified 05/26/25 14:05 Exam Narrative: Anterior wall +3 [place] at 0 Assessment and Plan Assessment and plan (1) Cystocele with uterine prolapse: Code(s): N81.4 - Uterovaginal prolapse, unspecified Status: Acute Assessment and Plan: Robotic Sacral Colpopexy
[2025-06-08] VITALS (8 sets, daily range): BP systolic 115–164; BP diastolic 61–76; PULSE 66–84; RESP 12–16; TEMP 36.3–36.6; O2SAT 98–100
[2025-06-08] MEDS: ACETAMINOPHEN 500 MG TABLET 1000 MG PO (06:15)
[2025-06-08] MEDS: KETOROLAC 15 MG/ML VIAL (*BKC) IV PUSH ×3 (06:20→16:33)
[2025-06-08] MEDS: LACTATED RINGERS 1,000 ML 30 ML IV CONT ×2 (06:20→09:59)
--- NOTE | 2025-06-08 06:38 | WPDHPUPDATE1 ---
History and Physical Update Update Date/Time: 06/08/25 06:38 History and Physical has been reviewed, including an updated exam of the patient. There are NO changes in the patient's condition. Risks, benefits, and alternatives have been discussed and questions answered. Patient agrees to proceed with procedure.
--- NOTE | 2025-06-08 07:15 | WPDHPUPDATE1 ---
History and Physical Update Update Date/Time: 06/08/25 07:15 History and Physical has been reviewed, including an updated exam of the patient. There are NO changes in the patient's condition. Risks, benefits, and alternatives have been discussed and questions answered. Patient agrees to proceed with procedure.
--- NOTE | 2025-06-08 07:25 | WPDANESEPPF ---
Anes - Initial Pre Proc Eval Procedure: Operation Date: 06/08/25 07:30 Proposed Procedures p Robotic Sacrocolpopexy, Urethral Sling - Ramez Becker MD s Robotic Assisted Supracervical Hysterectomy With Bilateral Salpingo-Oophorectomy - Mustapha Robert MD Date/Time: 06/08/25 07:25 Surgeon: Ramez Becker MD Pre Op Diagnosis: uterine prolapse, stress incont Patient Data Age: 74 Gender: F Height: 1.7 m Weight: 75.8 kg Last Vital Signs Temp 97.8 F 06/08/25 06:02 Pulse 71 06/08/25 06:02 Resp 16 06/08/25 06:02 BP 164/72 H 06/08/25 06:02 Pulse Ox 98 06/08/25 06:02 O2 Del Method Room Air 06/08/25 06:02 Allergies Allergy/AdvReac Type Severity Reaction Status Date / Time No Known Allergies Allergy Verified 06/08/25 06:40 Home Medications ?Medication ?Instructions ?Recorded ?Confirmed ?Type calcium 600 mg (as carbonate)-vit 1 tablet PO DAILY 03/24/20 06/08/25 History D3 20 mcg (800 unit) chewable tablet (Caltrate plus D) odvaoqrm-scy-ktzcd acid 0.4 1 tablet PO DAILY 03/24/20 06/08/25 History mg-lycopene 300 mcg-lutein 250 mcg tablet (Centrum Silver) glucosamine sulfate 1,000 mg 1,000 mg PO DAILY 06/28/21 06/08/25 History capsule ascorbate calcium (vitamin C) 500 500 mg PO DAILY 03/16/25 06/08/25 History mg tablet rosuvastatin 10 mg tablet See Rx Instructions .Route 05/18/25 06/08/25 Rx .COMPLEX #90 tabs Patient hx anesthesia problems: none Family hx anesthesia problems: none Results Review: All pre-operative results and documents have been reviewed as part of the pre-operative evaluation. [facility] Past Medical History Medical History Osteoarthritis Overweight (BMI 25.0-29.9) History of mumps History of measles History of broken collarbone (~1973) Mixed hyperlipidemia Surgical History Surgical History History of total right knee replacement (~11/15/21) History of tubal ligation Family History Family History Father Alzheimer disease Coronary artery disease Other Carcinoma of colon Diabetes mellitus Social History Social History Smoking status: Never smoker Additional smoking assessment comments: DENIES ANY FORM OF TOBACCO USE Alcohol intake: never Alcohol use details: 1 per month Substance use: never Lack of Transportation: No Lack of Food: Never True Current Housing: I Do Not Have Housing Concerned About Future Housing: No Difficulty Paying Gas/Electric Bills: No Difficulty Paying for Meds: No Currently Unemployed: No Education: High School Diploma/GED Difficulty w/ Childcare or Family Care: No Living arrangements: with family Additional living arrangements comments: Spiritual care concerns: No Anes - Eval Final PreProcedure Day of Procedure 06/08/25 07:25 Patient weight: normal Heart: regular rate and rhythm Lungs: clear to auscultation Airway: Mallampati scale class II Neurological: alert and oriented Last oral intake: >/= 8 hours ASA classification: III Emergent: no Anesthetic plan: proceed Anesthesia type and monitoring: general ETT and standard monitoring Results Review: All pre-operative results and documents have been reviewed as part of the pre-operative evaluation. Informed Consent: The patient's anesthetic plan and its attendant risks and benefits were discussed with the patient/family/POA. Questions were solicited and answers provided to the satisfaction of the patient/family/POA.
[2025-06-08] MEDS: ceFAZolin 2 GM in SODIUM CHLORIDE 0.9% IV 50 ML 100 ML IVPB (07:30)
[2025-06-08] MEDS: metroNIDAZOLE 500 MG/ISO 100ML 500 MG/100 ML BAG 100 MG IVPB (07:40)
--- NOTE | 2025-06-08 08:33 | P.OP_ITS ---
Procedure Note - Detailed Date of Procedure 06/08/25 Pre-op Diagnosis uterine prolapse, stress incont Post-op Diagnosis Same Procedure Performed Robotic supracervical hysterectomy salpingo oophorectomy Surgeon Mustapha Robert MD Anesthesia General Indications 74-year-old female with uterine prolapse Findings Uterine prolapse. Small uterus tubes post tubal ligation. Normal-appearing ovaries Description of Procedure Patient was prepped draped in the normal sterile fashion placed dorsal position. Excellent general trach anesthesia weighted speculum placed in the posterior fornix of the vagina. Anterior lip of the cervix grasped with a single-tooth tenaculum. Bernabe's cannula inserted the cervix and attached to the single-tooth to be used later she will later for uterine manipulation. A 16 Divehi catheter placed in bladder and the gloves were changed. Dr. Becker proceeded to dock the robot please see his operative report for full details. Once the robot was docked. I attended the consumer credit counselor. The left round ligament was grasped, burned, cut. Anterior bladder flap was formed by sharply dissecting the peritoneum and reflecting the bladder caudally away from the cervix and uterus the opposite round ligament which was clamped, burned, cut. The left infundibulopelvic structure was skeletonized serially clamping burning and cutting until the reaching the previously cut round ligament to remove the left ovary and tube. In similar fashion on the right the infundibulopelvic structure was skeletonized clamping burning cutting and bringing this to the level of the previously cut round ligament. Next cardinal broad ligaments on the left were serially skeletonized clamping burning cutting and hugging the cervix and uterus until the uterine vessels could be seen on the left these were individually clamped, burned, cut. In similar fashion the cardinal broad ligaments were serially skeletonized clamping burning cutting and hugging the cervix uterus until the uterine vessels could be seen on the right these were individually clamped, burned, cut. A supracervical incision made and this was placed in an Endo-Catch blood loss at this point was considered 5cc. All sponge, needle, instrument counts were correct. Dr. Becker took over from there the patient was stable at this point Estimated Blood Loss 5 Packing No Pathology Yes Complications No immediate complications Condition Stable Disposition No change
--- NOTE | 2025-06-08 08:36 | S_PTH ---
PATIENT: Mildred Almaraz [id number] AGE/SX: 74/F ROOM: RE06/08/[address]: Ramez Becker MD : 1950 BED: DIS: 06/08/2025 SPEC #: [id number] RECD: 06/08/25 10:06 STATUS: JAZMYNE REQ #: [id number] EVER: 06/08/25 08:[address]: Mustapha Pagan DEPT: [facility] Surgical RECD BY: Sandra Jack ENTERED: 06/08/25 10:07 SP TYPE: Surgical OTHR DR: MD Mustapha Maldonado MD Michael E. Mulligan, MD Tissues: A - Uterus Procedures: Hematoxylin and Eosin Stain Gross and Microscopic Level 5 Comments: @ Ordering doctor for HE edited from KAYLA to ISAMAR @ by VICKI at 06/08/25 1413 @ Ordering doctor for TL5 edited from KAYLA to ISAMAR @ obdulia COHEN at 06/08/25 1413 @ Submitting doctor edited from KAYLA to ISAMAR @ by VICKI at 06/08/25 1411
--- NOTE | 2025-06-08 09:57 | P.OP_ITS ---
Procedure Note - Detailed Date of Procedure 06/08/25 Pre-op Diagnosis uterine prolapse Post-op Diagnosis Same Procedure Performed Robotic assisted laparoscopic sacral colpopexy Cystoscopy Surgeon Ramez Becker MD Anesthesia General Indications A woman with uterine prolapse as well as stress incontinence. She desires surgical correction. She is here for the above. She understands risks of bleeding, infection, diskitis, damage to surrounding organs, bowel injury, bowel obstruction, mesh related complications including exposure and extrusion, postoperative voiding dysfunction including incontinence and retention, need for ancillary procedures, dyspareunia, recurrence of prolapse, and other perioperati ve intraoperative postoperative complications. She agrees to proceed. Findings See below Description of Procedure She was correctly identified. Informed consent obtained. She from the operating room. She was given general anesthesia. She was given appropriate perioperative antibiotics. She was placed a low lithotomy position. Pressure points were padded. A time-out performed. I marked out the skin 3 fingerbreadths cephalad to the umbilicus. I anesthetized the skin. I incised the skin. I dissected down to the fascia. I grasped the fascia with Connie clamps. I entered the fascia sharply in a Felipe type technique. I placed sutures for later fascial closure. I placed a midline trocar. I examined the abdomen. There is no sign of any injury. Under direct vision I placed 2 additional trocars in the right upper quadrant and 2 additional trocars the left upper quadrant. She was placed in steep Trendelenburg. The robot was docked. Her geothermal operations engineer completed their portion of the procedure. Please see that operative report for details. I then sat at the console. The Sizer in the vagina created plane on the anterior and posterior vaginal wall. I took great care not to injure the vagina, bladder, or rectum. I introduced the mesh into the abdomen. I sewed the anterior leaflet of mesh on the anterior vaginal wall. I sewed the posterior leaflet of mesh on the posterior vaginal wall. This was done with several sutures of 2 0 Crescent-Edilberto. I reflected the colon laterally. I opened the posterior peritoneum over the sacral promontory. I carried this into the cul-de-sac. I freed up the edges for later retroperitonealization. I located the anterior longitudinal ligament the sacrum. I cleaned off all fatty tissues. I then tensioned my mesh appropriately. I did a vaginal exam the bedside. I assured prolapse reduction without undue tension. I then sewed the proximal leaflet of mesh onto the anterior longitudinal ligament of the sacrum with several sutures of 2 0 Crescent-Edilberto. I then used a 2 0 Monocryl to completely and meticulously retroperitonealized all mesh. I allowed the colon to go back to its normal anatomic location. There is no sign of any impingement. The specimen was then removed. All ports removed. Fascia was tied down. Skin was closed with Monocryl and surgical glue. I then performed cystoscopy. There was no tumors or surgical artifact. Both ureters were seen to excrete clear yellow urine. There is no surgical artifact in the bladder or urethra. I cut the excess sling material. Close incision with glue. She was awakened and transferred to PACU in stable condition. Implants Sacral colpopexy mesh Estimated Blood Loss 5 Packing No Pathology None sent Complications No immediate complications Condition Stable Disposition PACU
[2025-06-08] MEDS: fentaNYL CITRATE INJ (*CRX) 100 MCG/2 ML VIAL 25 MCG IV PUSH (11:00)
--- NOTE | 2025-06-08 11:35 | OBPPTRN ---
Patient transferred to post room #289 via bed. Support person present. Oriented to unit, room, information board, rooming in, admission packet and security measures. Patient verbalizes understanding.
[2025-06-08] MEDS: KCL 20 MEQ/D5/0.45% SOD CHL 1,000 ML 100 ML IV CONT (11:40)
[2025-06-08] MEDS: ONDANSETRON INJ 4 MG/2 ML VIAL IV PUSH (13:21)
== END 2025-06-08 17:00 | disposition home or self-care (01) ==
LOC: ANHSURGERY 07:35 → ANHOB2 11:28
PROVIDERS: Obstetrics & Gynecology; PCP Family Medicine; Visit Provider Urology
PROC: (CPT 57425; principal; 2025-06-08 07:30)
PROC: 0UT94ZZ Resection of Uterus, Percutaneous Endoscopic Approach (ICD-10-PCS; CPT 57425; 2025-06-08 07:30)
DX: N81.4 Uterovaginal prolapse, unspecified (principal); D25.9 Leiomyoma of uterus, unspecified; D26.1 Other benign neoplasm of corpus uteri; N83.312 Acquired atrophy of left ovary; N83.311 Acquired atrophy of right ovary
CPT/HCPCS: 58542; 57425; S2900 ×2; 88307; 99199; J0690; A9270; C1781; J0360; J1100; J1171; J1836; J1885; J2003; J2405; J2704; J3010; J3480; J7120